=== PATIENT | female | born 1970 | race American Indian/Alaskan Native ===

== ENCOUNTER 2021-12-03 18:23 | Emergency (ER) | payer OTHER ==
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
[2021-12-04] MEDS ORDERED: KETOROLAC 30 MG/1 ML INJ IM ONE (01:06)
[2021-12-04 01:21] VITALS: BP 144/76
== END 2021-12-04 01:21 | disposition home or self-care (01) ==
LOC: ED 18:23
DX: S13.9XXA Sprain of joints and ligaments of unspecified parts of neck, initial encounter (principal); X58.XXXA Exposure to other specified factors, initial encounter; Y93.89 Activity, other specified; Y92.89 Other specified places as the place of occurrence of the external cause; Y99.8 Other external cause status
CPT/HCPCS: 96372; 99282; J1885